=== PATIENT | male | born 1990 | race Caucasian/White ===

== ENCOUNTER 2020-09-26 02:44 | Emergency (ER) | payer BC ==
--- NOTE | 2020-09-26 04:47 | EDM.PDOC ---
ED HPI GENERAL MEDICAL PROBLEM - General Chief Complaint: Respiratory Problem Stated Complaint: dyspnea Time Seen by Provider: 09/26/20 03:15 Source of Information: Reports: Patient History Limitations: Reports: No Limitations - History of Present Illness INITIAL COMMENTS - FREE TEXT/NARRATIVE: Patient presented to the ED because of cough and dyspnea. There is no associated fever,chills, N/V/D. He smokes a pack and a half daily. 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: motrin 9pm upper back/left rib Pain Score (Numeric/FACES): 3 headache Pain Score (Numeric/FACES): 1 - Related Data Allergies Allergy/AdvReac Type Severity Reaction Status Date / Time No Known Allergies Allergy Verified 09/26/20 02:53 Home Meds: Home Meds Albuterol [Ventolin HFA] 2 puff INH Q4H PRN #1 inhaler 09/26/20 [Rx] Azithromycin [Zithromax] 250 mg PO DAILY #6 tablet 09/26/20 [Rx] predniSONE [Prednisone] 40 mg PO DAILY #10 tablet 09/26/20 [Rx] Past Medical History - Past Health History Medical/Surgical History: Denies Medical/Surgical History Musculoskeletal History: Reports: Back Pain, Chronic Other Musculoskeletal History: flat feet, impingements to bilat hips d/t flat feet. Neurological History: Reports: Seizure Other Neuro History: seizure as teenager - Infectious Disease History Infectious Disease History: Reports: Chicken Pox, MRSA Other Infectious Disease History: HX bursitis rt knee/mrsa/on vanc - Past Surgical History Neurological Surgical History: Reports: None Musculoskeletal Surgical History: Reports: None Social & Family History - Tobacco Use Tobacco Use Status *Q: Current Every Day Tobacco User Years of Tobacco use: 11 Packs/Tins Daily: 1.5 - Caffeine Use Caffeine Use: Reports: Soda Caffeine Use Comment: monsters 1/day - Recreational Drug Use Recreational Drug Use: No ED ROS GENERAL - Review of Systems Review Of Systems: See Below Constitutional: Reports: No Symptoms HEENT: Reports: No Symptoms Respiratory: Reports: Shortness of Breath, Wheezing, Cough Cardiovascular: Reports: No Symptoms Endocrine: Reports: No Symptoms GI/Abdominal: Reports: No Symptoms : Reports: No Symptoms Musculoskeletal: Reports: No Symptoms Skin: Reports: No Symptoms Neurological: Reports: No Symptoms Psychiatric: Reports: No Symptoms Hematologic/Lymphatic: Reports: No Symptoms ED EXAM, GENERAL - Physical Exam Exam: See Below Exam Limited By: No Limitations General Appearance: Alert, No Apparent Distress Nose: Normal Inspection, Normal Mucosa, No Blood Throat/Mouth: Normal Inspection, Normal Lips, Normal Teeth Head: Atraumatic, Normocephalic Neck: Normal Inspection, Supple, Non-Tender, Full Range of Motion Respiratory/Chest: No Respiratory Distress, Wheezing Cardiovascular: Normal Peripheral Pulses, Regular Rate, Rhythm, No Edema, No Gallop Back Exam: Normal Inspection, Full Range of Motion Extremities: Normal Inspection, Normal Range of Motion Neurological: Alert, Oriented, CN II-XII Intact, Normal Cognition, Normal Gait Psychiatric: Normal Affect, Normal Mood Course - Vital Signs Text/Narrative:: CXR-hyperinflation no infiltrates Last Recorded V/S: Last Vital Signs Temp 36.5 C 09/26/20 02:55 Pulse 70 09/26/20 02:55 Resp 18 09/26/20 02:55 BP 132/75 09/26/20 02:55 Pulse Ox 100 09/26/20 02:55 - Orders/Labs/Meds Orders: Active Orders 24 hr Category Date Time Status Chest 2V [CR] Stat Exams 09/26/20 03:21 Taken Departure - Departure Time of Disposition: 04:30 Disposition: Home, Self-Care 01 Condition: Good Clinical Impression: COPD (chronic obstructive pulmonary disease) - Discharge Information Prescriptions: predniSONE [Prednisone] 40 mg PO DAILY #10 tablet Albuterol [Ventolin HFA] 2 puff INH Q4H PRN #1 inhaler PRN Reason: Dyspnea Azithromycin [Zithromax] 250 mg PO DAILY #6 tablet Instructions: Chronic Obstructive Pulmonary Disease Exacerbation, [id number] Referrals: PCP,None [Primary Care Provider] - Forms: ED Department Discharge, ED Department Discharge Additional Instructions: Please read discharge instructions on COPD Try to quit smoking Albuterol inhaler, 2 puffs every 4-6 hours as needed for shortness of breath and wheezing Z-gladys as directed for 5 days Prednisone 20 mg, take 2 tablets every morning for 5 days Follow up as needed Sepsis Event Note (ED) - Evaluation Sepsis Screening Result: No Definite Risk - Focused Exam Vital Signs: Vital Signs Temp Pulse Resp BP Pulse Ox 09/26/20 02:55 36.5 C 70 18 132/75 100 - My Orders Last 24 Hours: My Active Orders 09/26/20 03:21 Chest 2V [CR] Stat - Assessment/Plan Last 24 Hours: My Active Orders 09/26/20 03:21 Chest 2V [CR] Stat
--- NOTE | 2020-09-26 12:12 | CR ---
INDICATION: Short of breath, has had 2 negative COVID tests in the last 2 weeks. CHEST TWO VIEWS: Two PA views and a lateral view of the chest were obtained 09/26/20 - no comparison. The lungs appear to be somewhat hyperaerated with prominent AP diameter raising question of COPD - correlate clinically. Bony structures are grossly intact, although a minimal dextroconvex scoliosis of the mid thoracic spine is suggested. Heart and mediastinum are unremarkable. A definite active infiltrate or effusion was not identified. IMPRESSION: 1. No acute process. 2. Obstructive airway disease is suggested - correlate clinically. MTDD
== END 2020-09-26 05:00 | disposition home or self-care (01) ==
LOC: FB.ED 02:44
DX: J44.9 Chronic obstructive pulmonary disease, unspecified (principal); F17.210 Nicotine dependence, cigarettes, uncomplicated
CPT/HCPCS: 71046; 99284; 99284-25

== ENCOUNTER 2022-04-16 19:59 | Emergency (ER) | payer SELFPAY ==
[2022-04-16] MEDS ORDERED: predniSONE 20 MG Tab PO ONE (21:00)
[2022-04-16] MEDS ORDERED: Ketorolac 30 MG/ML SDV IM ONE (21:00)
== END 2022-04-16 22:25 | disposition home or self-care (01) ==
LOC: FB.ED 19:59
DX: S46.911A Strain of unspecified muscle, fascia and tendon at shoulder and upper arm level, right arm, initial encounter (principal); Z72.0 Tobacco use; X50.3XXA Overexertion from repetitive movements, initial encounter; Y99.0 Civilian activity done for income or pay
CPT/HCPCS: 96372; 99283; J1885; J7512; 99281

== ENCOUNTER 2023-03-31 03:37 | Emergency (ER) | payer SELFPAY | END 2023-03-31 04:16 | disposition home or self-care (01) | LOC: FB.ED 03:37 | DX: R07.9 Chest pain, unspecified (principal); F19.10 Other psychoactive substance abuse, uncomplicated; Z86.16 Personal history of COVID-19 | CPT/HCPCS: 93005; 99284 ==

== ENCOUNTER 2023-08-01 23:28 | Emergency (ER) | payer BC, MEDICAID ==
[2023-08-02] MEDS ORDERED: Gabapentin 300 MG Cap PO ONE (00:40)
== END 2023-08-02 00:45 | disposition home or self-care (01) ==
LOC: FB.ED 23:28
DX: M54.10 Radiculopathy, site unspecified (principal); F19.10 Other psychoactive substance abuse, uncomplicated; F17.210 Nicotine dependence, cigarettes, uncomplicated; Z86.16 Personal history of COVID-19
CPT/HCPCS: 99283; A9270